=== PATIENT | female | born 1995 | race Caucasian/White ===

== ENCOUNTER 2017-02-18 16:12 | Emergency (ER) | payer OTHER ==
--- NOTE | ~2017-02-18 | CR72 ---
[facility] A Service of [facility] & [facility] RADIOLOGY TEXT RESULTS PATIENT: JUANITA AGEE LOCATION: [facility] : [birth year] UNIT #: [id number] AGE: [address]: Ortiz Santoyo MD SEX: F ORDER DR: [id number] [facility] [address] [place], [place] [address] [id number] E MR#: [id number] Acc #: [id number] NAME: JUANITA AGEE : 1995 SEX: F STUDY DATE/TIME: 02/18/2017 16:33 UNIT: [facility] ROOM: STUDY DESCRIPTION: CR Chest Single View Portable Attending Physician: Ortiz Santoyo M.D. Ordering Physician: Ortiz Gomez M.D. [facility] REPORT This report is preliminary unless electronic signature is present EXAM Single view chest. DATE OF EXAM 02/18/2017 INDICATIONS Syncope, weakness, and dizziness for 1 day. FINDINGS Single portable AP view of the chest compared to 11/06/2012. The heart and mediastinal contours are normal. The lungs are clear. No pleural effusion. IMPRESSION Normal chest radiograph. Dictated by... Miller Thompson M.D. THIS IS AN ELECTRONICALLY VERIFIED REPORT Miller Thompson M.D. at 02/19/2017 7:51 AM SY/rohini TD: 02/18/2017 20:13 JOB #: [id number] MEDICAL IMAGING REPORT Page 1 of 1 COPY
--- NOTE | ~2017-02-18 | CT71 ---
[facility] A Service of [facility] & [facility] RADIOLOGY TEXT RESULTS PATIENT: JUANITA AGEE LOCATION: [facility] : [birth year] UNIT #: [id number] AGE: [address]: Ortiz Santoyo MD SEX: F ORDER DR: [id number] [facility] [address] [place], [place] [address] [id number] E MR#: [id number] Acc #: [id number] NAME: JUANITA AGEE : 1995 SEX: F STUDY DATE/TIME: 02/18/2017 16:23 UNIT: [facility] ROOM: STUDY DESCRIPTION: CT Head Wo Contrast Attending Physician: Ortiz Santoyo M.D. Ordering Physician: Ortiz Gomez M.D. [facility] RE[facility] This report is preliminary unless electronic signature is present EXAM CT brain without contrast HISTORY Syncope today. Headache for 2 months. TECHNIQUE Axial noncontrast images were obtained from the skull base to the vertex. This CT exam was performed with one or more of the following radiation dose reduction techniques: Automatic exposure control, adjustment of mA and/or kV according to patient size, and iterative reconstruction. FINDINGS Ventricular size and configuration are normal. There is no evidence of acute infarct or hemorrhage. There are no extraaxial fluid collections. No mass lesion or mass effect is seen. There are no skull fractures. IMPRESSION Normal noncontrast head CT. Dictated by... Oneil Mcgowan M.D. THIS IS AN ELECTRONICALLY VERIFIED REPORT Oneil Mcgowan M.D. at 02/18/2017 11:16 PM DFL/alejandro TD: 02/18/2017 20:37 JOB #: [id number] MEDICAL IMAGING REPORT Page 1 of 1 COPY
--- NOTE | ~2017-02-18 | EKG ---
PATIENT: JUANITA AGEE UNIT #: [id number] Ventricular Rate: 73 BPM Atrial Rate: 73 BPM P-R Interval: 130 ms QRS Duration: 90 ms Q-T Interval: 414 ms QTC Calculation(Bezet): 456 ms P Falconer: 75 degrees Calculated R Falconer: 85 degrees Calculated T Falconer: 46 degrees Diagnosis Line: Normal sinus rhythm Diagnosis Line: Possible Left atrial enlargement Diagnosis Line: Borderline ECG Diagnosis Line: No previous ECGs available Diagnosis Line: Confirmed by ROBERT JALLOH MD ([id number]) on 02/19/2017 Diagnosis Line: 7:15:27 PM INTERPRETING MD: YEIMI LINDSEY
[2017-02-18 15:33] LABS: URINE SOURCE CLEAN CATCH
[2017-02-18 15:47] LABS: URINE APPEARANCE CLOUDY; URINE BILIRUBIN NEG (NEG); URINE BLOOD NEG (NEG); URINE COLOR YELLOW; URINE GLUCOSE NEG (NEG); URINE KETONE NEG (NEG); URINE LEUKOCYTE ESTERASE 1+ (NEG); URINE NITRATE NEG (NEG); URINE PROTEIN NEG (NEG); URINE SPECIFIC GRAVITY 1.017 (1.003-1.035); URINE UROBILINOGEN 0.2 MG/DL (NEG)
[~2017-02-18 16:12] MED LIST: CLINDAMYCIN HC300 MG PO; KEFLEX500 M1 PO; ZOFRAN ODT4 MG PO
[2017-02-18 16:20] LABS: BASOPHIL% 0.5 % (0-2.5); EOSINOPHIL# 0.5 X10e3 (0-0.7); EOSINOPHIL% 6.8 % (0.0-7.0); HEMATOCRIT 41.5 % (35.0-45.0); HEMOGLOBIN 13.8 gm/dL (12.0-16.0); LYMPHOCYTE# 1.2 X10e3 (1.0-3.5); LYMPHOCYTE% 16.3 % (17.0-45.0); MEAN CELL VOLUME 95.4 FL (83-96); MEAN CORPUSCULAR HEMOGLOBIN 31.7 PG (28-34); MEAN CORPUSCULAR HGB CONC 33.3 g/dL (30-36); MEAN PLATELET VOLUME 8.2 FL (6.5-11.5); MONOCYTE# 0.7 X10e3 (0-1.0); MONOCYTE% 9.6 % (3.0-12.0); NEUTROPHIL# 4.9 X10e3 (1.5-7.1); NEUTROPHIL% 66.8 % (40-75); PLATELET COUNT 211 X10e3 (140-420); RED BLOOD COUNT 4.35 X10e (3.90-5.30); RED CELL DISTRIBUTION WIDTH 12.8 % (11.0-15.5); WHITE BLOOD COUNT 7.4 X10e3 (4.0-10.5)
[2017-02-18 16:21] LABS: URINE SQUAMOUS EPITHELIAL CELL MODERATE /[HPF]
[2017-02-18 16:22] LABS: CULTURE INDICATED? NO
[2017-02-18 16:30] LABS: AMPHETAMINE POS (NEG); BARBITURATES NEG (NEG); BENZODIAZEPINES NEG (NEG); COCAINE NEG (NEG); MARIJUANA POS (NEG); OPIATES POS (NEG); TRICYCLIC ANTIDEPRESSANTS POS (NEG); U METHADONE NEG (NEG)
[2017-02-18 16:31] LABS: DIFF IND NO
[2017-02-18 16:34] LABS: POC - CKMB <1.0 ng/mL (0.0-7.9); POC - TROPONIN <0.05 ng/mL (<=0.05)
[2017-02-18 16:42] LABS: ALBUMIN SERUM 4.5 g/dL (3.5-5.0); BILIRUBIN, DIRECT 0.2 mg/dL (0.0-0.2); BILIRUBIN,INDIRECT 1.4 mg/dL (0.0-0.9); BILIRUBIN,TOTAL 1.6 mg/dL (0.2-2.0); CALCIUM SERUM 8.9 mg/dL (8.4-10.2); CREATININE SERUM 0.7 mg/dL (0.6-1.4); POTASSIUM 3.8 mmol/L (3.5-5.1); PROTEIN TOTAL SERUM 7.5 g/dL (6.0-8.3)
[2017-02-18 17:39] LABS: POC - CKMB <1.0 ng/mL (0.0-7.9); POC - TROPONIN <0.05 ng/mL (<=0.05)
== END 2017-02-18 18:07 | disposition home or self-care (01) ==
LOC: CED 16:12
PROVIDERS: Emergency Medicine
DX: R55 Syncope and collapse (principal); F17.200 Nicotine dependence, unspecified, uncomplicated; F19.10 Other psychoactive substance abuse, uncomplicated
CPT/HCPCS: 36415; 70450; 71010; 80048; 80076; 80307; 81003; 82553; 84484; 84703; 85025; 93005; 96360; 99284

== ENCOUNTER 2017-05-07 09:20 | Emergency (ER) | payer OTHER | END 2017-05-07 10:35 | disposition home or self-care (01) | LOC: CED 09:20 | DX: J02.0 Streptococcal pharyngitis (principal); F17.210 Nicotine dependence, cigarettes, uncomplicated | CPT/HCPCS: 87880; 96372; 99283; J0561 ==

== ENCOUNTER 2017-05-20 10:49 | Emergency (ER) | payer OTHER | END 2017-05-20 13:05 | disposition home or self-care (01) | LOC: CFTX 10:49 → CED 10:49 → CFTX 12:02 | DX: R51 Headache (principal); G43.909 Migraine, unspecified, not intractable, without status migrainosus | CPT/HCPCS: 96361; 96374; 96375; 99284; J1100; J1200; J1885 ==

== ENCOUNTER 2017-06-03 10:48 | Emergency (ER) | payer OTHER ==
[~2017-06-03] VITALS: Ht 157.5 cm; Wt 46.7 kg
--- NOTE | ~2017-06-03 | CT52 ---
[facility] A Service of [facility] & [facility] RADIOLOGY TEXT RESULTS PATIENT: JUANITA AGEE LOCATION: [facility] : [birth year] UNIT #: [id number] AGE: [address]: Giovani Sanders MD SEX: F ORDER DR: [id number] [id number] [facility] [place], [place] [address] [id number] E MR#: [id number] Acc #: [id number] NAME: JUANITA AGEE : 1995 SEX: F STUDY DATE/TIME: UNIT: [facility] ROOM: STUDY DESCRIPTION: CT Cervical Spine Wo Cont Attending Physician: Giovani Sanders M.D. Ordering Physician: Giovani Sanders M.D. Primary Care Physician: [facility] MEDICAL IMAGING REPORT This report is preliminary unless electronic signature is present EXAM CT cervical spine without contrast 06/03/2017 12:12 hours HISTORY 22-year-old woman who fell today at 0830 hours hitting back of head with nausea, dizziness and blurred vision, posterior neck pain since fall. COMPARISON None TECHNIQUE Thin cut axial images were obtained from the skull base to the upper thoracic spine without contrast. Sagittal and coronal reconstructions were performed. Total exam DLP 202 mGy - cm. This CT exam was performed with one or more of the following radiation dose reduction techniques: automatic exposure control, adjustment of mA and/or kV according to patient size, and iterative reconstruction. FINDINGS Limited views through the posterior fossa are negative. There is no skull base fracture. The mastoid air cells are clear. C1-2 articulation is normal. There is no dens fracture. C2-3, C3-4, C4-5, C5-6, C6-7, C7-T1 are normal. There is no fracture or malalignment. IMPRESSION Negative noncontrasted cervical spine CT. Dictated by... Clare Zamorano M.D. THIS IS AN ELECTRONICALLY VERIFIED REPORT Clare Zamorano M.D. at 06/04/2017 8:53 AM [facility] A Service of [facility] & [facility] RADIOLOGY TEXT RESULTS PATIENT: JUANITA AGEE LOCATION: [facility] : [birth year] UNIT #: [id number] AGE: [address]: Giovani Sanders MD SEX: F ORDER DR: DELPHINE/pippa TD: 06/03/2017 18:21 JOB #: [id number] MEDICAL IMAGING REPORT Page 1 of 1 COPY
--- NOTE | ~2017-06-03 | CT71 ---
[facility] A Service of [facility] RADIOLOGY TEXT RESULTS PATIENT: JUANITA AGEE LOCATION: [facility] : [birth year] UNIT #: [id number] AGE: [address]: Giovani Sanders MD SEX: F ORDER DR: [id number] [facility] [address] [place], [place] [address] [id number] E MR#: [id number] Acc #: [id number] NAME: JUANITA AGEE : 1995 SEX: F STUDY DATE/TIME: 06/03/2017 12:07 UNIT: [facility] ROOM: STUDY DESCRIPTION: CT Head Wo Contrast Attending Physician: Giovani Sanders M.D. Ordering Physician: Giovani Sanders M.D. MEDICAL IMAGING REPORT This report is preliminary unless electronic signature is present EXAM CT head HISTORY 22-year-old female, fell today, hit back of head, nauseated, nausea, dizziness and blurred vision with posterior neck pain. COMPARISON STUDIES Head CT from 02/18/2017. TECHNIQUE This CT exam was performed with one or more of the following radiation dose reduction techniques: automatic exposure control, adjustment of mA and/or kV according to patient size, and iterative reconstruction. FINDINGS Brain parenchyma normal. No mass or hemorrhage. Bony calvaria, skull base, mastoids and sinuses unremarkable. IMPRESSION Negative head CT. No change from patient's head CT of 02/18/2017. Dictated by... Ngozi Henriquez M.D. THIS IS AN ELECTRONICALLY VERIFIED REPORT Ngozi Henriquez M.D. at 06/05/2017 5:11 PM REBECCA/mary ellen TD: 06/03/2017 18:37 JOB #: [id number] [facility] A Service [facility] RADIOLOGY TEXT RESULTS PATIENT: JUANITA AGEE LOCATION: [facility] : [birth year] UNIT #: [id number] AGE: [address]: Giovani Sanders MD SEX: F ORDER DR: MEDICAL IMAGING REPORT Page 1 of 1 COPY
[2017-06-03 11:56] LABS: BASOPHIL% 0.4 % (0-2.5); EOSINOPHIL# 0.1 X10e3 (0-0.7); EOSINOPHIL% 1.3 % (0.0-7.0); HEMATOCRIT 37.1 % (35.0-45.0); HEMOGLOBIN 12.3 gm/dL (12.0-16.0); LYMPHOCYTE# 1.3 X10e3 (1.0-3.5); MEAN CELL VOLUME 92.7 FL (83-96); MEAN CORPUSCULAR HEMOGLOBIN 30.6 PG (28-34); MEAN PLATELET VOLUME 7.5 FL (6.5-11.5); MONOCYTE# 0.4 X10e3 (0-1.0); NEUTROPHIL# 5.8 X10e3 (1.5-7.1); NEUTROPHIL% 76.3 % (40-75); PLATELET COUNT 267 X10e3 (140-420); RED CELL DISTRIBUTION WIDTH 13.5 % (11.0-15.5); WHITE BLOOD COUNT 7.6 X10e3 (4.0-10.5)
[2017-06-03 11:59] LABS: DIFF IND NO
== END 2017-06-03 13:55 | disposition home or self-care (01) ==
LOC: CED 10:48
PROVIDERS: Emergency Medicine
DX: S09.90XA Unspecified injury of head, initial encounter (principal); W01.198A Fall on same level from slipping, tripping and stumbling with subsequent striking against other object, initial encounter; Y92.009 Unspecified place in unspecified non-institutional (private) residence as the place of occurrence of the external cause
CPT/HCPCS: 36415; 70450; 72125; 85025; 99284